=== PATIENT | male | born 1945 | race Caucasian/White ===

== ENCOUNTER 2017-10-17 07:46 | Emergency (ER) | payer MEDICARE, OTHER ==
[2017-10-17] MEDS ORDERED: Nitroglycerin 2% Oint 1 GM UD Packet TOP ONE (07:59)
[2017-10-17] MEDS ORDERED: Sodium Chloride 0.9% 10 ML Syringe FLUSH PRN (07:59)
--- NOTE | 2017-10-17 08:28 | EDM.PDOC ---
ED HPI GENERAL MEDICAL PROBLEM - General Chief Complaint: Chest Pain Stated Complaint: [facility] Time Seen by Provider: 10/17/17 07:50 Source of Information: Reports: Patient, RN Notes Reviewed - History of Present Illness INITIAL COMMENTS - FREE TEXT/NARRATIVE: 72-year-old male awakened with heaviness left chest this morning about 1-1/2 hours ago. He also states he was "diaphoretic upon awakening. He was moderately uncomfortable, he also did have some nausea and dizziness associated with that no vomiting. He did take 325 mg aspirin at home, called the local ambulance. He did end up taking a total of 3 nitroglycerin which did give moderate relief of the discomfort. The pain was down to a very mild level upon arrival to ED and at the time of my exam a short time later he states the pain is gone. However total duration of discomfort would be in the 1 hour range.'s have history of coronary artery disease, had one stent placed about 20 years ago. He felt fine yesterday with no unusual symptoms. He does not take any medication on a regular basis. He does not smoke. Chest Pain Score (Numeric/FACES): 0 - Related Data Allergies Allergy/AdvReac Type Severity Reaction Status Date / Time No Known Allergies Allergy Verified 10/17/17 08:10 Home Meds: Home Meds . [No Known Home Meds] 10/17/17 [History] Past Medical History HEENT History: Reports: Impaired Vision Cardiovascular History: Reports: Stents Social & Family History - Tobacco Use Smoking Status *Q: Never Smoker Second Hand Smoke Exposure: No - Caffeine Use Caffeine Use: Reports: None - Recreational Drug Use Recreational Drug Use: No ED ROS GENERAL - Review of Systems Review Of Systems: See Below Constitutional: Reports: Diaphoresis. Denies: Fever, Chills HEENT: Denies: Sinus Problem, Throat Pain Respiratory: Denies: Shortness of Breath, Pleuritic Chest Pain Cardiovascular: Reports: Chest Pain. Denies: Edema (Gone) GI/Abdominal: Reports: Nausea. Denies: Abdominal Pain, Vomiting (Gone) Musculoskeletal: Denies: Neck Pain, Shoulder Pain, Arm Pain, Back Pain, Leg Pain Skin: Reports: Diaphoresis (Gone) Neurological: Reports: Dizziness (Gone). Denies: Trouble Speaking, Difficulty Walking, Change in Speech ED EXAM, GENERAL - Physical Exam Exam: See Below General Appearance: Alert, No Apparent Distress Eye Exam: Bilateral Eye: PERRL Throat/Mouth: Normal Inspection, Normal Oropharynx Head: Atraumatic. No: Facial Swelling Neck: Supple, Full Range of Motion Respiratory/Chest: No Respiratory Distress, Lungs Clear, Normal Breath Sounds, Chest Non-Tender Cardiovascular: Regular Rate, Rhythm GI/Abdominal: Soft, Non-Tender Back Exam: No: CVA Tenderness (L), CVA Tenderness (R) Extremities: Normal Inspection, Normal Range of Motion. No: Pedal Edema, Leg Pain, Increased Warmth, Redness Neurological: Alert, Oriented, No Motor/Sensory Deficits Skin Exam: Warm, Dry, Normal Color EKG INTERPRETATION EKG Date: 10/17/17 Rhythm: NSR [place]: Normal P-Wave: Present QRS: Normal ST-T: Normal Course - Vital Signs Last Recorded V/S: Last Vital Signs Temp 98.1 F 10/17/17 07:51 Pulse 59 L 10/17/17 07:51 Resp 18 10/17/17 07:51 BP 133/93 H 10/17/17 07:51 Pulse Ox 95 10/17/17 07:51 - Orders/Labs/Meds Orders: Active Orders 24 hr Category Date Time Status EKG 12 Lead [EKG Documentation Completion] [RC] STAT Care 10/17/17 07:58 Active Peripheral IV Care [RC] . DIRECTED Care 10/17/17 07:59 Active Chest 1V Frontal [CR] Stat Exams 10/17/17 07:58 Taken Sodium Chloride 0.9% [Saline Flush] Med 10/17/17 07:59 Active 10 ml FLUSH ASDIRECTED PRN Peripheral IV Insertion Adult [OM.PC] Stat Oth 10/17/17 07:58 Ordered Medication Orders Sodium Chloride (Saline Flush) 10 ml FLUSH ASDIRECTED PRN PRN Reason: Keep Vein Open Last Admin: 10/17/17 08:09 Dose: 10 ml Labs: Laboratory Tests 10/17/17 10/17/17 10/17/17 Range/Units 08:10 08:10 11:30 WBC 4.52 (4.23-9.07) K/mm3 RBC 4.59 L (4.63-6.08) M/mm3 Hgb 13.9 (13.7-17.5) gm/L Hct 40.6 (40.1-51.0) % MCV 88.5 (79.0-92.2) fl MCH 30.3 (25.7-32.2) pg MCHC 34.2 (32.2-35.5) g/dl RDW Std Deviation 43.9 (35.1-43.9) fL Plt Count 177 (163-337) K/mm3 MPV 11.3 (9.4-12.3) fl Neut % (Auto) 50.6 (34.0-67.9) % Lymph % (Auto) 30.5 (21.8-53.1) % [place] % (Auto) 13.3 H (5.3-12.2) % Eos % (Auto) 3.8 (0.8-7.0) Baso % (Auto) 1.8 H (0.1-1.2) % Neut # (Auto) 2.29 (1.78-5.38) K/mm3 Lymph # (Auto) 1.38 (1.32-3.57) K/mm3 [place] # (Auto) 0.60 (0.30-0.82) K/mm3 Eos # (Auto) 0.17 (0.04-0.54) K/mm3 Baso # (Auto) 0.08 (0.01-0.08) K/mm3 Sodium 143 (136-145) mEq/L Potassium 4.1 (3.5-5.1) mEq/L Chloride 110 H (98-107) mEq/L Carbon Dioxide 25 (21-32) mEq/L Anion Gap 12.1 (5-15) BUN 19 H (7-18) mg/dL Creatinine 1.1 (0.7-1.3) mg/dL Est Cr Clr Drug Dosing 58.42 mL/min Estimated GFR (MDRD) > 60 (>60) mL/min BUN/Creatinine Ratio 17.3 (14-18) Glucose 128 H (80-115) mg/dL Calcium 8.1 L (8.5-10.1) mg/dL Total Bilirubin 0.5 (0.2-1.0) mg/dL AST 27 (15-37) U/L ALT 33 (16-63) U/L Alkaline Phosphatase 54 (46-116) U/L Troponin I < 0.017 < 0.017 (0.00-0.056) ng/mL Total Protein 6.2 L (6.4-8.2) g/dl Albumin 3.2 L (3.4-5.0) g/dl Globulin 3.0 gm/dL Albumin/Globulin Ratio 1.1 (1-2) Meds: Medications Generic Name Dose Route Start Last Admin Trade Name Mj PRN Reason Stop Dose Admin Sodium Chloride 10 ml 10/17/17 07:59 10/17/17 08:09 Saline Flush FLUSH 10 ml ASDIRECTED PRN Administration Keep Vein Open Discontinued Medications Generic Name Dose Route Start Last Admin Trade Name Freq PRN Reason Stop Dose Admin Nitroglycerin 1 gm 10/17/17 07:59 10/17/17 08:08 Nitro-Bid 2% TOP 10/17/17 08:00 1 gm ONETIME ONE Administration - Re-Assessments/Exams Free Text/Narrative Re-Assessment/Exam: 10/17/17 09:06 Has remained pain-free while awaiting lab work. Troponin has come back normal, chest x-ray looks good, EKG also was normal other than Q waves V2 and V3 presumably from prior MRI. He states he does get occasional heartburn so that may have been etiology of his discomfort this morning. We'll check a 3 hour troponin which will be about 2 hours from now. 10/17/17 12:17. Repeat troponin has also come back normal, patient is been resting comfortably pain-free. Sinus rhythm no ectopy. Discharge instructions as documented. Departure - Departure Time of Disposition: 12:06 Disposition: Home, Self-Care 01 Condition: Fair Clinical Impression: Atypical chest pain GE reflux Qualifiers: Esophagitis presence: without esophagitis Qualified Code(s): K21.9 - Gastro- esophageal reflux disease without esophagitis Instructions: Gastroesophageal Reflux Disease, Adult Referrals: Olivier Kowalski MD [Primary Care Provider] - Forms: ED Department Discharge Additional Instructions: Rest, increase activity as tolerated, follow-up with one of your regular medical providers either at the [facility] or down at [facility] some time in the next 1-2 weeks. Call for appt. return to the ED as needed if symptoms worsening in any way. - My Orders Last 24 Hours: My Active Orders 10/17/17 07:58 EKG 12 Lead [EKG Documentation Completion] [RC] STAT Chest 1V Frontal [CR] Stat Peripheral IV Insertion Adult [OM.PC] Stat 10/17/17 07:59 Peripheral IV Care [RC] . DIRECTED Sodium Chloride 0.9% [Saline Flush] 10 ml FLUSH ASDIRECTED PRN - Assessment/Plan Last 24 Hours: My Active Orders 10/17/17 07:58 EKG 12 Lead [EKG Documentation Completion] [RC] STAT Chest 1V Frontal [CR] Stat Peripheral IV Insertion Adult [OM.PC] Stat 10/17/17 07:59 Peripheral IV Care [RC] . DIRECTED Sodium Chloride 0.9% [Saline Flush] 10 ml FLUSH ASDIRECTED PRN
--- NOTE | 2017-10-18 08:18 | CR ---
Chest: Frontal view of the chest was obtained. Comparison: No prior study. Heart size is normal. Tortuous thoracic aorta is seen. Lungs are clear. Bony structures are grossly intact. Slight degenerative change is noted within the spine with minimal scoliosis. Impression: 1. Nothing acute is seen on frontal chest x-ray. Diagnostic code #2
== END 2017-10-17 12:45 | disposition home or self-care (01) ==
LOC: JD.ED 07:46
DX: R07.89 Other chest pain (principal); K21.9 Gastro-esophageal reflux disease without esophagitis
CPT/HCPCS: 36415; 71045; 80053; 84484; 85025; 93005; 99285; A9270; J7050; 93010; 99284-25

== ENCOUNTER 2017-12-03 05:27 | Emergency (ER) | payer MEDICARE, OTHER ==
[2017-12-03] MEDS ORDERED: HYDROmorphone 0.5 MG/0.5 ML SYRINGE IVPUSH ONE (05:42)
[2017-12-03] MEDS ORDERED: Ondansetron 4 MG/2 ML SDV IVPUSH ONE (05:42)
[2017-12-03] MEDS ORDERED: Nitroglycerin/D5W 25 MG/250 ML BOTTLE IV SCH (05:45)
[2017-12-03] MEDS ORDERED: Sodium Chloride 0.9% 1,000 ML IV SCH (05:45)
--- NOTE | 2017-12-03 05:47 | EDM.PDOC ---
<Evin Marcial - Last Filed: 12/03/17 09:42> ED HPI GENERAL MEDICAL PROBLEM - General Chief Complaint: Chest Pain Stated Complaint: [facility] Time Seen by Provider: 12/03/17 05:41 - Related Data Allergies Allergy/AdvReac Type Severity Reaction Status Date / Time No Known Allergies Allergy Verified 12/03/17 05:41 Home Meds: Home Meds . [No Known Home Meds] 10/17/17 [History] Course - Vital Signs Last Recorded V/S: Last Vital Signs Temp 36.4 C 12/03/17 05:35 Pulse 64 12/03/17 10:00 Resp 16 12/03/17 10:00 BP 106/62 12/03/17 10:00 Pulse Ox 96 12/03/17 10:00 - Orders/Labs/Meds Orders: Active Orders 24 hr Category Date Time Status EKG Documentation Completion [RC] STAT Care 12/03/17 05:43 Active EKG Documentation Completion [RC] STAT Care 12/03/17 08:10 Active Oxygen Therapy [RC] ASDIRECTED Care 12/03/17 05:51 Active Labs: Laboratory Tests 12/03/17 12/03/17 12/03/17 Range/Units 06:00 06:00 06:00 WBC 4.71 (4.23-9.07) K/mm3 RBC 4.68 (4.63-6.08) M/mm3 Hgb 14.4 (13.7-17.5) gm/L Hct 41.8 (40.1-51.0) % MCV 89.3 (79.0-92.2) fl MCH 30.8 (25.7-32.2) pg MCHC 34.4 (32.2-35.5) g/dl RDW Std Deviation 43.9 (35.1-43.9) fL Plt Count 176 (163-337) K/mm3 MPV 11.2 (9.4-12.3) fl Neutrophils % (Manual) 58 (40-60) % Band Neutrophils % 1 (0-10) % Lymphocytes % (Manual) 34 (20-40) % Atypical Lymphs % 0 % Monocytes % (Manual) 2 (2-10) % Eosinophils % (Manual) 4 (0.8-7.0) % Basophils % (Manual) 1 (0.2-1.2) Platelet Estimate Adequate RBC Morph Comment Normal PT 10.5 (9.5-12.1) SECONDS INR 0.96 APTT 30 (24-31) SECONDS D-Dimer, Quantitative (0.19-0.50) mg/L Sodium 141 (136-145) mEq/L Potassium 3.5 (3.5-5.1) mEq/L Chloride 109 H (98-107) mEq/L Carbon Dioxide 23 (21-32) mEq/L Anion Gap 12.5 (5-15) BUN 20 H (7-18) mg/dL Creatinine 1.1 (0.7-1.3) mg/dL Est Cr Clr Drug Dosing 60.45 mL/min Estimated GFR (MDRD) > 60 (>60) mL/min BUN/Creatinine Ratio 18.2 H (14-18) Glucose 133 H (80-115) mg/dL Calcium 7.9 L (8.5-10.1) mg/dL Magnesium 2.1 (1.8-2.4) mg/dl Total Bilirubin 0.6 (0.2-1.0) mg/dL AST 18 (15-37) U/L ALT 25 (16-63) U/L Alkaline Phosphatase 57 (46-116) U/L CK-MB (CK-2) 1.2 (0-3.6) ng/ml Troponin I < 0.017 (0.00-0.056) ng/mL C-Reactive Protein < 0.2 (<1.0) mg/dL NT-Pro-B Natriuret Pep (0-125) pg/mL Total Protein 6.1 L (6.4-8.2) g/dl Albumin 3.2 L (3.4-5.0) g/dl Globulin 2.9 gm/dL Albumin/Globulin Ratio 1.1 (1-2) 12/03/17 12/03/17 12/03/17 Range/Units 06:00 06:00 08:20 WBC (4.23-9.07) K/mm3 RBC (4.63-6.08) M/mm3 Hgb (13.7-17.5) gm/L Hct (40.1-51.0) % MCV (79.0-92.2) fl MCH (25.7-32.2) pg MCHC (32.2-35.5) g/dl RDW Std Deviation (35.1-43.9) fL Plt Count (163-337) K/mm3 MPV (9.4-12.3) fl Neutrophils % (Manual) (40-60) % Band Neutrophils % (0-10) % Lymphocytes % (Manual) (20-40) % Atypical Lymphs % % Monocytes % (Manual) (2-10) % Eosinophils % (Manual) (0.8-7.0) % Basophils % (Manual) (0.2-1.2) Platelet Estimate RBC Morph Comment PT (9.5-12.1) SECONDS INR APTT (24-31) SECONDS D-Dimer, Quantitative 0.40 (0.19-0.50) mg/L Sodium (136-145) mEq/L Potassium (3.5-5.1) mEq/L Chloride (98-107) mEq/L Carbon Dioxide (21-32) mEq/L Anion Gap (5-15) BUN (7-18) mg/dL Creatinine (0.7-1.3) mg/dL Est Cr Clr Drug Dosing mL/min Estimated GFR (MDRD) (>60) mL/min BUN/Creatinine Ratio (14-18) Glucose (80-115) mg/dL Calcium (8.5-10.1) mg/dL Magnesium (1.8-2.4) mg/dl Total Bilirubin (0.2-1.0) mg/dL AST (15-37) U/L ALT (16-63) U/L Alkaline Phosphatase (46-116) U/L CK-MB (CK-2) (0-3.6) ng/ml Troponin I < 0.017 (0.00-0.056) ng/mL C-Reactive Protein (<1.0) mg/dL NT-Pro-B Natriuret Pep 160 H (0-125) pg/mL Total Protein (6.4-8.2) g/dl Albumin (3.4-5.0) g/dl Globulin gm/dL Albumin/Globulin Ratio (1-2) Meds: Medications Discontinued Medications Generic Name Dose Route Start Last Admin Trade Name Freq PRN Reason Stop Dose Admin Al Hydroxide/Mg Hydroxide 30 0 ml 12/03/17 06:17 12/03/17 06:24 ml/ Lidocaine HCl 15 ml PO 12/03/17 06:18 45 ml ONETIME ONE Administration Famotidine 20 mg 12/03/17 09:35 12/03/17 09:47 Pepcid PO 12/03/17 09:36 20 mg ONETIME ONE Administration Hydromorphone HCl 0.5 mg 12/03/17 05:42 12/03/17 06:08 Dilaudid IVPUSH 12/03/17 05:43 0.5 mg ONETIME ONE Administration Nitroglycerin/Dextrose 25 mg in 250 mls @ 6 mls/hr 12/03/17 05:45 Nitroglycerin 25 Mg/D5w 250 Ml IV TITRATE SABIHA Protocol 10 MCG/MIN Sodium Chloride 1,000 mls @ 75 mls/hr 12/03/17 05:45 12/03/17 06:06 Normal Saline IV 75 mls/hr ASDIRECTED SABIHA Administration Ondansetron HCl 4 mg 12/03/17 05:42 12/03/17 06:04 Zofran IVPUSH 12/03/17 05:43 4 mg ONETIME ONE Administration - Re-Assessments/Exams Free Text/Narrative Re-Assessment/Exam: 12/03/17 09:29 Case discussed with, and patient received by Dr. Keys. The second troponin has returned undetectable. As above, the patient had complete resolution of his symptoms following a GI cocktail, indicating a gastroenterologic etiology. I'm going to recommend that he start taking an [id number]-qdderap H2 roly twice a day. If that adequately treats his symptoms, that he decrease it to once a day. If it does not treat his symptoms, then he can start a PPI, but should also follow-up with one of our surgeons to arrange for an EGD, to make sure that he does not have Baeza esophagus. Departure - Departure Time of Disposition: 09:32 Disposition: Home, Self-Care 01 Condition: Good Clinical Impression: GERD (gastroesophageal reflux disease) Qualifiers: Esophagitis presence: without esophagitis Qualified Code(s): K21.9 - Gastro- esophageal reflux disease without esophagitis Instructions: Food Choices for Gastroesophageal Reflux Disease, Adult Referrals: PCP,None [Primary Care Provider] - Nubia Ozuna MD [Physician] - Forms: ED Department Discharge Additional Instructions: You were seen in the emergency room for chest pain. Workup in the ER included blood work, a chest x-ray, and an ECG. You were also given a GI cocktail while in the ER, which completely resolved your symptoms. The remainder of your workup was unremarkable, indicating that the cause of your symptoms is MOST LIKELY due to acid reflux, also known as GERD. We recommend that you start taking an ihfd-ngs-zfyiitk H2 roly, such as Pepcid (famotidine), Zantac (ranitidine), or Tagamet (cimetidine), one tablet twice a day. If that is adequate in treating your symptoms, decrease the dosage to one tablet once a day. If 2 tablets a day does not treat your symptoms, we recommend that you follow-up with a surgeon, to arrange for an EGD, to make sure that there is nothing severe going on in your stomach or esophagus. Follow-up with Dr. Nubia Ozuna as a PCP. If any other problems, please do not hesitate to return to the ER. - My Orders Last 24 Hours: My Active Orders 12/03/17 05:43 EKG Documentation Completion [RC] STAT 12/03/17 05:51 Oxygen Therapy [RC] ASDIRECTED 12/03/17 08:10 EKG Documentation Completion [RC] STAT - Assessment/Plan Last 24 Hours: My Active Orders 12/03/17 05:43 EKG Documentation Completion [RC] STAT 12/03/17 05:51 Oxygen Therapy [RC] ASDIRECTED 12/03/17 08:10 EKG Documentation Completion [RC] STAT <Jonnathan Keys - Last Filed: 12/04/17 05:21> ED HPI GENERAL MEDICAL PROBLEM - General Source of Information: Reports: Patient, EMS Notes Reviewed History Limitations: Reports: No Limitations - History of Present Illness INITIAL COMMENTS - FREE TEXT/NARRATIVE: 72-year-old male arrives in the ED per ambulance from [place]. Patient states he awoke around 0415 hrs. this morning with acute central chest pain radiate through to his back. Did not rate up into his neck or jaw. No pain in his left upper extremity or shoulder.. He did not feel like he was his normal heartburn sensation. Interestingly had a similar type pain yesterday but it seemed to dissipate after a few hours. States he felt rough all day yesterday however. Does have a history of gastroesophageal reflux disease with intermittent reflux. He tries to watch what he eats and how soon he eats before going to bed. He has had a heart attack about 20 years ago with one stent placement. Has not had as stress test or cardiology review for a lengthy period of time. He [place] and doesn't experience any worsening of his chest pressure discomfort. Doesn't do a lot of heavy lifting anymore. He states he was diaphoretic with this onset of chest pain. A little bit nauseated as well. No real feeling of shortness of breath. Paramedics gave him 3 doses of nitroglycerin spray per ora which reduces pain from a 7 to a 3. He also received morphine 2 mg intravenously en route to the hospital. He also received 4 baby aspirins chewed. BP currently is 110/72. He states he was seen through the ED here about 5 weeks ago with similar complaints and no cardiac findings were identified at that time ECG done by triage nurse shows sinus rhythm at 63/m. There are near Q waves V1 and V2 and V3 suggest an old anteroseptal myocardial infarction. There is T-wave flattening in V5 V6. There are no signs of acute ischemia at this time. QT is mildly prolonged at 407. Onset: Today Onset Date: 12/03/17 Onset Time: 04:15 Duration: Minutes: Location: Reports: Chest (Central chest pain rating through to his back.) Quality: Reports: Ache, Pressure Severity: Moderate (Was 8 out of 10 now 3 out of 10 after nitroglycerin sprays) Improves with: Reports: Other (Seem to improve after morphine intravenously 2 mg and 3 nitroglycerin sprays en route to the hospital from [place].) Worsens with: Reports: None Context: Reports: Other (Awoke from sleep spontaneously with central chest discomfort.) Associated Symptoms: Reports: Chest Pain, Nausea/Vomiting. Denies: Confusion, Cough, cough w sputum, Diaphoresis, Fever/Chills, Headaches, Loss of Appetite, Malaise, Rash, Seizure (Mild associated nausea), Shortness of Breath, Syncope, Weakness Treatments [employer]: Reports: Aspirin (Paramedics gave him 4 baby aspirins chewed.) Left Chest Pain Score (Numeric/FACES): 3 Past Medical History HEENT History: Reports: Impaired Vision Cardiovascular History: Reports: [place] (about 20 years ago.), Stents (Had 1 stent placed 20 years ago. Has not had a cardiac stress test for many years.). Denies : Heart Failure, Heart Murmur, Hypertension Musculoskeletal History: Reports: Back Pain, Chronic, Osteoarthritis Social & Family History - Caffeine Use Caffeine Use: Reports: None ED ROS GENERAL - Review of Systems Review Of Systems: See Below Constitutional: Reports: Malaise, Fatigue. Denies: Fever, Chills, Weight Loss HEENT: Reports: Glasses, Hearing Loss (Mild hearing loss. Does not use hearing aids) Respiratory: Reports: No Symptoms. Denies: Pleuritic Chest Pain, Cough, Sputum , Hemoptysis Cardiovascular: Reports: Chest Pain, Dyspnea on Exertion (See history of present illness). Denies: Edema, Lightheadedness ( sometimes), Orthopnea, Palpitations Endocrine: Reports: Fatigue GI/Abdominal: Reports: No Symptoms : Reports: Other (Slow urinary stream. Nocturia usually 1.) Musculoskeletal: Reports: Back Pain, Joint Pain (These hips neck and shoulders.) Skin: Reports: No Symptoms Neurological: Reports: No Symptoms Psychiatric: Reports: No Symptoms Hematologic/Lymphatic: Reports: No Symptoms Immunologic: Reports: No Symptoms ED EXAM, GENERAL - Physical Exam Exam: See Below Exam Limited By: No Limitations General Appearance: Alert, WD/WN, No Apparent Distress, Other (Vital signs are stable.) Head: Atraumatic, Normocephalic Neck: Normal Inspection, Full Range of Motion, Limited Range of Motion, Tender Lateral. No: Carotid Bruit, Lymphadenopathy (R), Thyromegaly Respiratory/Chest: No Respiratory Distress, No Accessory Muscle Use, Chest Non- Tender, Rales (Fine rales both posterior lung ugarte.) Cardiovascular: Normal Peripheral Pulses, Regular Rate, Rhythm, No Edema, No Gallop, No Murmur, No Rub Peripheral Pulses: 1+: Posterior Tibial (L), Posterior Tibial (R), Dorsalis Pedis (L), Dorsalis Pedis (R) GI/Abdominal: Normal Bowel Sounds, Soft, Non-Tender, No Organomegaly, Other (No surgical scars. No pain in his chest on firm palpation in the epigastrium. No pain along the right costal margin.) Back Exam: Normal Inspection, Full Range of Motion. No: CVA Tenderness (L), CVA Tenderness (R) Extremities: Normal Inspection, Non-Tender, No Pedal Edema, Other (Evidence of osteophytic changes knees limited range of motion of hips.) Neurological: Alert, Oriented, CN II-XII Intact, Normal Cognition Psychiatric: Normal Affect, Normal Mood Skin Exam: Warm, Dry, Intact, Normal Color, No Rash EKG INTERPRETATION EKG Date: 12/03/17 Time: 05:35 Rhythm: NSR Rate (Beats/Min): 63 [place]: Normal P-Wave: Present QRS: Other (There is Q-wave V1 and V2 V3 is compatible with an old anteroseptal myocardial infarction.) ST-T: Other (There is T-wave flattening in V5 V6. Decreased voltage in the limb leads.) QT: Prolonged (mildy prlonged.) Course - Orders/Labs/Meds Orders: Active Orders 24 hr Category Date Time Status EKG Documentation Completion [RC] STAT Care 12/03/17 05:43 Active EKG Documentation Completion [RC] STAT Care 12/03/17 08:10 Active Oxygen Therapy [RC] ASDIRECTED Care 12/03/17 05:51 Active Labs: Laboratory Tests 12/03/17 12/03/17 12/03/17 Range/Units 06:00 06:00 06:00 WBC 4.71 (4.23-9.07) K/mm3 RBC 4.68 (4.63-6.08) M/mm3 Hgb 14.4 (13.7-17.5) gm/L Hct 41.8 (40.1-51.0) % MCV 89.3 (79.0-92.2) fl MCH 30.8 (25.7-32.2) pg MCHC 34.4 (32.2-35.5) g/dl RDW Std Deviation 43.9 (35.1-43.9) fL Plt Count 176 (163-337) K/mm3 MPV 11.2 (9.4-12.3) fl Neutrophils % (Manual) 58 (40-60) % Band Neutrophils % 1 (0-10) % Lymphocytes % (Manual) 34 (20-40) % Atypical Lymphs % 0 % Monocytes % (Manual) 2 (2-10) % Eosinophils % (Manual) 4 (0.8-7.0) % Basophils % (Manual) 1 (0.2-1.2) Platelet Estimate Adequate RBC Morph Comment Normal PT 10.5 (9.5-12.1) SECONDS INR 0.96 APTT 30 (24-31) SECONDS D-Dimer, Quantitative (0.19-0.50) mg/L Sodium 141 (136-145) mEq/L Potassium 3.5 (3.5-5.1) mEq/L Chloride 109 H (98-107) mEq/L Carbon Dioxide 23 (21-32) mEq/L Anion Gap 12.5 (5-15) BUN 20 H (7-18) mg/dL Creatinine 1.1 (0.7-1.3) mg/dL Est Cr Clr Drug Dosing 60.45 mL/min Estimated GFR (MDRD) > 60 (>60) mL/min BUN/Creatinine Ratio 18.2 H (14-18) Glucose 133 H (80-115) mg/dL Calcium 7.9 L (8.5-10.1) mg/dL Magnesium 2.1 (1.8-2.4) mg/dl Total Bilirubin 0.6 (0.2-1.0) mg/dL AST 18 (15-37) U/L ALT 25 (16-63) U/L Alkaline Phosphatase 57 (46-116) U/L CK-MB (CK-2) 1.2 (0-3.6) ng/ml Troponin I < 0.017 (0.00-0.056) ng/mL C-Reactive Protein < 0.2 (<1.0) mg/dL NT-Pro-B Natriuret Pep (0-125) pg/mL Total Protein 6.1 L (6.4-8.2) g/dl Albumin 3.2 L (3.4-5.0) g/dl Globulin 2.9 gm/dL Albumin/Globulin Ratio 1.1 (1-2) 12/03/17 12/03/17 12/03/17 Range/Units 06:00 06:00 08:20 WBC (4.23-9.07) K/mm3 RBC (4.63-6.08) M/mm3 Hgb (13.7-17.5) gm/L Hct (40.1-51.0) % MCV (79.0-92.2) fl MCH (25.7-32.2) pg MCHC (32.2-35.5) g/dl RDW Std Deviation (35.1-43.9) fL Plt Count (163-337) K/mm3 MPV (9.4-12.3) fl Neutrophils % (Manual) (40-60) % Band Neutrophils % (0-10) % Lymphocytes % (Manual) (20-40) % Atypical Lymphs % % Monocytes % (Manual) (2-10) % Eosinophils % (Manual) (0.8-7.0) % Basophils % (Manual) (0.2-1.2) Platelet Estimate RBC Morph Comment PT (9.5-12.1) SECONDS INR APTT (24-31) SECONDS D-Dimer, Quantitative 0.40 (0.19-0.50) mg/L Sodium (136-145) mEq/L Potassium (3.5-5.1) mEq/L Chloride (98-107) mEq/L Carbon Dioxide (21-32) mEq/L Anion Gap (5-15) BUN (7-18) mg/dL Creatinine (0.7-1.3) mg/dL Est Cr Clr Drug Dosing mL/min Estimated GFR (MDRD) (>60) mL/min BUN/Creatinine Ratio (14-18) Glucose (80-115) mg/dL Calcium (8.5-10.1) mg/dL Magnesium (1.8-2.4) mg/dl Total Bilirubin (0.2-1.0) mg/dL AST (15-37) U/L ALT (16-63) U/L Alkaline Phosphatase (46-116) U/L CK-MB (CK-2) (0-3.6) ng/ml Troponin I < 0.017 (0.00-0.056) ng/mL C-Reactive Protein (<1.0) mg/dL NT-Pro-B Natriuret Pep 160 H (0-125) pg/mL Total Protein (6.4-8.2) g/dl Albumin (3.4-5.0) g/dl Globulin gm/dL Albumin/Globulin Ratio (1-2) Meds: Medications Discontinued Medications Generic Name Dose Route Start Last Admin Trade Name Freq PRN Reason Stop Dose Admin Al Hydroxide/Mg Hydroxide 30 0 ml 12/03/17 06:17 12/03/17 06:24 ml/ Lidocaine HCl 15 ml PO 12/03/17 06:18 45 ml ONETIME ONE Administration Famotidine 20 mg 12/03/17 09:35 12/03/17 09:47 Pepcid PO 12/03/17 09:36 20 mg ONETIME ONE Administration Hydromorphone HCl 0.5 mg 12/03/17 05:42 12/03/17 06:08 Dilaudid IVPUSH 12/03/17 05:43 0.5 mg ONETIME ONE Administration Nitroglycerin/Dextrose 25 mg in 250 mls @ 6 mls/hr 12/03/17 05:45 Nitroglycerin 25 Mg/D5w 250 Ml IV TITRATE SABIHA Protocol 10 MCG/MIN Sodium Chloride 1,000 mls @ 75 mls/hr 12/03/17 05:45 12/03/17 06:06 Normal Saline IV 75 mls/hr ASDIRECTED SABIHA Administration Ondansetron HCl 4 mg 12/03/17 05:42 12/03/17 06:04 Zofran IVPUSH 12/03/17 05:43 4 mg ONETIME ONE Administration - Radiology Interpretation Free Text/Narrative:: 72-year-old male presents to the ED didn't by chest pain at about quarter after for this morning. This was associated with diaphoresis and central chest heaviness rating to to his mid back. He has a history of microinfarction about 20 years ago and ECG reveals evidence of an old anteroseptal myocardial infarction. Apparently had one stent placed 20 years ago. 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 Changes in medications. He improved in terms of chest pain en route to the hospital with the paramedics gave him 3 doses of nitroglycerin spray and 2 mg of morphine intravenously and oxygen. Currently pain is 2-3 out of 10 and feels much better. Has a history of gastroesophageal reflux. He was seen in the ED 5 weeks ago with similar type complaints with no cardiac findings identified. Current ECG reveals evidence of an old anteroseptal microinfarction but no signs of acute ischemic. States he had similar type chest pain yesterday morning as well. States he felt a little tired and fatigued all day yesterday and not himself. On examination clinically he has some crackles in both lower lung ugarte suggestive of mild congestive failure. Jugular venous pulsations are not significantly elevated. He has no dependent edema. Routine labs including a d- dimer cardiac markers and BNP. His O2 sats are 93% on room air and he will be left on 2 L/m by nasal cannula. Given Dilaudid 0.5 mg IV with Zofran 4 mg IV for pain relief. Nitro drip will start at 5 mcg/min as his blood pressure is 110 on 72 at present. He had his aspirin administered by the paramedics as well for baby aspirins chewed. - Re-Assessments/Exams Free Text/Narrative Re-Assessment/Exam: 12/03/17 06:08 chest x-ray done portably reveals normal cardiac silhouette. Slight tortuosity of the thoracic aorta. Lungs do reveal a very slight vascular congestion pattern. No pleural effusions no pneumothorax 12/03/17 06:16 blood pressure currently is 101/65 and this is off the nitro drip. I will therefore withhold the nitro drip until his blood pressure comes back up. I suspect it dropped initially from the morphine and 3 nitroglycerin sprays he received from the paramedics. Still complains of retrosternal chest discomfort. I will try GI cocktail to see if it makes any difference. 12/03/17 06:42 Patient states the GI cocktail took all of his chest pain away. BP is 108/70. I'm going therefore going to leave him off the nitro drip. 12/03/17 07:09 Care will be assumed by Dr Marcial as it is change of shift. nitial labs are back. White count is normal at 4.71 with normal differential of 58% neutrophils 1% band. Hemoglobin is good at 14.4 with hematocrit of 41.8. PT is 10.5 with an INR of 0.96. PTT is 30. D-dimer is less than 0.40. Sodium is 141 with potassium low-normal at 3.5. Chloride is 109 with a bicarbonate 23. And a gap is 12.5. BUN is minimally elevated at 20. Creatinine is 1.1. GFR remains greater than 60. Glucose is 133. Serum calcium is low at 7.9. Normal at 2.1. Liver function normal. Initial cardiac markers show CK-MB fraction of 1.2 and a troponin I of less than 0.017. C-reactive protein is less than 0.2. BNP is 160 which is mildy elevated with normal being 125 in our lab. Albumin fraction slightly low at 3.2. Total protein slightly low at 6.1. He will will be for repeat cardiac markers at 0815 hrs. which would be 4 hours from the onset of his chest pain. At this point time it appears to be noncardiac in origin. Likely has a hiatal hernia with free reflux when he is supine. - My Orders Last 24 Hours: My Active Orders 12/03/17 05:43 EKG Documentation Completion [RC] STAT 12/03/17 05:51 Oxygen Therapy [RC] ASDIRECTED 12/03/17 08:10 EKG Documentation Completion [RC] STAT - Assessment/Plan Last 24 Hours: My Active Orders 12/03/17 05:43 EKG Documentation Completion [RC] STAT 12/03/17 05:51 Oxygen Therapy [RC] ASDIRECTED 12/03/17 08:10 EKG Documentation Completion [RC] STAT
[2017-12-03] MEDS ORDERED: Alum Hydrox/Mag Hydrox/Simeth 30 ML, Lidocaine 2% 15 ML PO ONE ×2 (06:17)
[2017-12-03] MEDS ORDERED: Famotidine 20 MG Tab PO ONE (09:35)
--- NOTE | 2017-12-03 10:21 | CR ---
Chest: Frontal view of the chest was obtained. Comparison: Prior chest x-ray of 10/19/17. Heart size is normal. Tortuous thoracic aorta is seen. Scoliosis and degenerative change are noted within the spine. Lungs are clear with no acute parenchymal densities. Impression: 1. Nothing acute seen on frontal chest x-ray. Diagnostic code #2
== END 2017-12-03 10:00 | disposition home or self-care (01) ==
LOC: JD.ED 05:27
DX: K21.9 Gastro-esophageal reflux disease without esophagitis (principal); Z79.899 Other long term (current) drug therapy; M19.90 Unspecified osteoarthritis, unspecified site
CPT/HCPCS: 36415; 71045; 80053; 82553; 83735; 83880; 84484; 85007; 85027; 85379; 85610; 85730; 86140; 93005; 96361; 96374; 96375; 99285; A9270; J1170; J2405; J7040; 93010; 99284-25

== ENCOUNTER 2022-07-24 00:20 | Emergency (ER) | payer MEDICARE, OTHER ==
[2022-07-24] MEDS ORDERED: Sodium Chloride 0.9% 10 ML Syringe FLUSH PRN (00:49)
[2022-07-24 01:44] LABS: ESTIMATED GFR 63 mL/min (>60)
== END 2022-07-24 03:05 | disposition home or self-care (01) ==
LOC: JD.ED 00:20
DX: I48.91 Unspecified atrial fibrillation (principal); I25.2 Old myocardial infarction
CPT/HCPCS: 36415; 71045; 71045-26; 80053; 84484; 85025; 93005; 93010; 99285

== ENCOUNTER 2023-10-22 12:58 | Inpatient (IN) | payer MEDICARE, OTHER ==
[2023-10-22 13:45] LABS: BASOPHILS ABSOLUTE AUTO 0.1 K/mm3 (0.0-0.2); BASOPHILS PERCENT AUTO 1.4 % (0.0-1.0); EOSINOPHILS ABSOLUTE AUTO 0.1 K/mm3 (0.0-0.4); EOSINOPHILS PERCENT AUTO 0.7 % (0.0-6.0); HEMATOCRIT 43.3 % (42.0-52.0); HEMOGLOBIN 15.1 gm/dl (14.0-18.0); IMMATURE GRAN ABSOLUTE AUTO 0.02 K/mm3 (0.00-0.05); IMMATURE GRAN PERCENT AUTO 0.3 % (0.0-0.4); LYMPHOCYTES ABSOLUTE AUTO 1.4 K/mm3 (1.0-4.8); LYMPHOCYTES PERCENT AUTO 19.4 % (24.0-44.0); MEAN CORPUSCULAR HEMOGLOBIN 30.6 pg (28.0-32.0); MEAN CORPUSCULAR HGB CONC 34.9 g/dl (32.0-36.0); MEAN CORPUSCULAR VOLUME 87.7 fl (83.0-99.0); MEAN PLATELET VOLUME 11.6 fl (9.4-12.4); MONOCYTES ABSOLUTE AUTO 0.9 K/mm3 (0.0-0.8); MONOCYTES PERCENT AUTO 12.6 % (0.0-8.0); NEUTROPHILS ABSOLUTE AUTO 4.6 K/mm3 (1.8-7.7); NEUTROPHILS PERCENT AUTO 65.6 % (41.0-71.0); PLATELET COUNT,PLT 188 K/mm3 (150-400); RED BLOOD CELL COUNT 4.94 M/mm3 (4.52-5.90); WHITE BLOOD CELL COUNT,WBC 7.06 K/mm3 (3.9-11.3)
[2023-10-22] MEDS: Sodium Chloride 0.9% 1,000 ML IV SCH (13:50)
[2023-10-22 14:05] LABS: INR 0.94; PROTHROMBIN TIME 10.1 SECONDS (9.7-12.0)
[2023-10-22 14:06] LABS: PTT,PARTIAL THROMBOPLSTIN TIME 27.2 SECONDS (21.7-31.4)
[2023-10-22 14:10] LABS: A/G RATIO 1.1 (1-2); ALBUMIN 3.6 g/dl (3.4-5.0); ANION GAP 12.9 (5-15); BILIRUBIN TOTAL 0.6 mg/dL (0.2-1.0); BUN/CREATININE RATIO 11.5 (14-18); C-REACTIVE PROTEIN 0.24 mg/dL (<0.30); CREATININE 1.3 mg/dL (0.7-1.3); EST CRCL DRUG DOSING (CG) 53.06 mL/min; MAGNESIUM 2.1 mg/dL (1.8-2.4); POTASSIUM,K 3.9 mEq/L (3.5-5.1); PROTEIN TOTAL,TP 6.8 g/dl (6.4-8.2)
[2023-10-22] MEDS ORDERED: Acetaminophen 325 MG Tab PO PRN (16:17)
[2023-10-22] MEDS ORDERED: Ondansetron 4 MG Tab.DIS PO PRN (16:17)
[2023-10-22] MEDS ORDERED: Docusate Sodium 100 MG Cap PO PRN (16:17)
[2023-10-22] MEDS ORDERED: Ondansetron 4 MG/2 ML SDV IV PRN (16:17)
[2023-10-22] MEDS: Heparin Sodium 5,000 Units/ML Vial SUBCUT SCH (17:47)
[2023-10-22] MEDS: Rosuvastatin 10 MG Tab PO SCH (17:47)
[2023-10-22] MEDS ORDERED: Albuterol 6.7 GM Inhaler INH PRN (18:26)
[2023-10-23] MEDS ORDERED: Albuterol 6.7 GM Inhaler INH PRN (07:51)
[2023-10-23] MEDS: Aspirin 81 MG Tab.Chew PO SCH (08:45)
[2023-10-23] MEDS: Clopidogrel 75 MG Tab PO SCH (08:45)
[2023-10-23] MEDS ORDERED: Metoprolol Succinate 25 MG Tab.ER PO SCH (21:00)
== END 2023-10-23 10:01 | disposition home or self-care (01) | DRG 65 ==
LOC: JD.ED 12:58 → JD.MS 16:17
PROVIDERS: ADMIT Hospitalist; ATTEND Hospitalist
DX: I63.412 Cerebral infarction due to embolism of left middle cerebral artery (principal); G81.91 Hemiplegia, unspecified affecting right dominant side; I63.311 Cerebral infarction due to thrombosis of right middle cerebral artery; I25.10 Atherosclerotic heart disease of native coronary artery without angina pectoris; M19.90 Unspecified osteoarthritis, unspecified site; F41.9 Anxiety disorder, unspecified; F32.A Depression, unspecified; I25.2 Old myocardial infarction; G89.29 Other chronic pain; M54.9 Dorsalgia, unspecified; I10 Essential (primary) hypertension; I48.91 Unspecified atrial fibrillation; R27.0 Ataxia, unspecified; J44.9 Chronic obstructive pulmonary disease, unspecified; E78.00 Pure hypercholesterolemia, unspecified; Z95.5 Presence of coronary angioplasty implant and graft; K21.9 Gastro-esophageal reflux disease without esophagitis; Z86.16 Personal history of COVID-19; Z79.02 Long term (current) use of antithrombotics/antiplatelets; Z79.899 Other long term (current) drug therapy; Z79.82 Long term (current) use of aspirin
CPT/HCPCS: 36415; 70450; 80053; 80061; 82947; 83735; 83880; 84484; 85025; 85610; 85730; 86140; 93005; 96360; 96361; 99285; J7030; A9270-GY; J1644